=== PATIENT | male | born 1985 | race Hispanic/Latino ===

== ENCOUNTER 2017-06-29 07:23 | Inpatient (IN) | payer MEDICAID, OTHER ==
[2017-06-29 07:40] VITALS: BMI 24.3
[2017-06-29 07:58] LABS: BASO % 0.5 % (0.0-2.0); EOS # 0.1 K/uL (0.0-0.7); EOS % 2.2 % (0.0-4.0); HEMOGLOBIN 16.7 g/dL (12.0-18.0); LYMPH # 1.9 K/uL (1.0-4.3); LYMPH % 35.1 % (20.0-40.0); MEAN CELL VOLUME 91.6 fL (80.0-94.0); MEAN CORPUSCULAR HEMOGLOBIN 32.2 pg (27.0-31.0); MEAN CORPUSCULAR HGB CONC 35.2 g/dL (33.0-37.0); MEAN PLATELET VOLUME 8.5 fL (7.2-11.7); MONO # 0.6 K/uL (0.0-0.8); MONO % 10.5 % (0.0-10.0); NEUT # 2.8 K/uL (1.8-7.0); NEUT % 51.7 % (50.0-75.0); NRBC % 0.1 % (0.0-2.0); RBC 5.19 Mil/uL (4.40-5.90); RED CELL DISTRIBUTION WIDTH 13.7 % (11.5-14.5); WHITE BLOOD COUNT 5.4 K/uL (4.8-10.8)
--- NOTE | 2017-06-29 08:01 | C.PDOC ---
History Of Present Illness 32 y/o male brought to ED by ALS intubated. As per ALS patient was at home vomiting and unresponsive when 911 was called. Empty bottle GHB was found next to the patient. Patient was RSI by paramedics. At arrival patient was unresponsive, unable to obtain history. Time Seen by Provider: 06/29/17 07:43 Chief Complaint (Nursing): Altered Mental Status History Per: EMS History/Exam Limitations: Clinical Condition Onset/Duration Of Symptoms: Hrs Onset Of Symptoms: <3 Hours Current Symptoms Are (Timing): Still Present Usual Baseline: Unknown Exacerbating Factor(s): Other (GHB ) Recent travel outside of the [place]: No Associated Symptoms: Other (Unresponsive ) Past Medical History Reviewed: Historical Data, Nursing Documentation, Vital Signs Vital Signs: Last Vital Signs Temp 97.5 F L 06/30/17 04:00 Pulse 82 06/30/17 06:00 Resp 11 L 06/30/17 06:00 BP 113/76 06/30/17 05:12 Pulse Ox 99 06/30/17 06:00 - Medical History PMH: HIV Surgical History: No Surg Hx Family History: States: No Known Family Hx - Social History Hx Alcohol Use: Yes Hx Substance Use: Yes - Immunization History Hx Tetanus Toxoid Vaccination: No Hx Influenza Vaccination: No Hx Pneumococcal Vaccination: No Review Of Systems Review Of Systems: ROS cannot be obtained secondary to pt's inabilty to answer questions. (Patient unresponsive) Physical Exam - Physical Exam Appears: Well, Non-toxic, No Acute Distress Skin: Diaphoretic Head: Atraumatic, Normacephalic Eye(s): bilateral: Normal Inspection Ear(s): Bilateral: Normal Oral Mucosa: Moist Lips: Other (bilateral nasal trumpets ett 24 at the lip ) Neck: Supple Chest: Symmetrical, No Tenderness Cardiovascular: Rhythm Regular Respiratory: No Rales, No Rhonchi, No Wheezing, Other (bilateral breath sounds with ventilation) Gastrointestinal/Abdominal: Soft, No Tenderness Neurological/Psych: Oriented x3, Normal Speech, Normal Cognition, Other (no focal deficits ) ED Course And Treatment - Laboratory Results Result Diagrams: 06/29/17 07:48 06/29/17 07:48 O2 Sat by Pulse Oximetry: 100 (RA) Pulse Ox Interpretation: Normal - Other Rad CXR - frontal view X-Ray: Viewed By Me, Read By Radiologist Interpretation: Chest x-ray single frontal view. History: Overdose. Comparison : 06/29/2017. Findings: Endotracheal tube extending into the mid thoracic trachea. Mild venous congestion. Right hilar prominence. Mild patchy increased markings at the left lung base. Impression: Endotracheal tube extending into the mid thoracic trachea. Mild venous congestion. Right hilar prominence. Mild patchy increased markings at the left lung base. CXR X-Ray: Viewed By Me, Read By Radiologist Interpretation: Chest x-ray single frontal view. History: NGT placement. Comparison: 06/29/2017. Findings: NG tube extending into the stomach. Other lines and tubes in stable position. Mild venous congestion. Patchy left basilar airspace opacity with small left pleural effusion. Right hilar prominence. Tortuous aorta. Heart size within normal limits. Degenerative changes in the spine. Impression: NG tube extending into the stomach. Other lines and tubes in stable position. Mild venous congestion. Patchy left basilar airspace opacity with small left pleural effusion. Right hilar prominence. Tortuous aorta. - CT Scan/US CT Head Other Rad Studies (CT/US): Read By Radiologist, Radiology Report Reviewed CT/US Interpretation: PROCEDURE: CT HEAD WITH CONTRAST. HISTORY: altered mental status - s/p overdose. COMPARISON: None available. TECHNIQUE: Axial computed tomography images were obtained through the head/brain with intravenous contrast. Radiation dose: Total exam DLP = 996 mGy-cm. This CT exam was performed using one or more of the following dose reduction techniques : Automated exposure control, adjustment of the mA and/or kV according to patient size, and/or use of iterative reconstruction technique. FINDINGS: HEMORRHAGE: No intracranial hemorrhage. BRAIN: No mass, mass effect or edema. No abnormal intracranial enhancement. No atrophy or chronic microvascular ischemic changes. VENTRICLES: Unremarkable. No hydrocephalus. CALVARIUM: Unremarkable. PARANASAL SINUSES: Mucosal thickening and opacification of the left maxillary sinus as well as the ethmoid air cells. MASTOID AIR CELLS: Unremarkable as visualized. No mastoid effusion. OTHER FINDINGS: None. IMPRESSION: No acute intracranial abnormality. Sinus mucosal disease. If symptoms persist, correlation with MRI would be helpful for further evaluation if clinically indicated. Progress Note: Spoke to the fishing vessel deckhand, Jannet Soriano, and the hospitalist, James Marcano While the patient was being transported for CT scan, he extubated himself and NG tube was pulled. Patient is groggy in ER but maintaining airway and saturation. ICU and hospitalist aware. Critical Care Time - Critical Care Note Total Time (in mins): 60 Documented critical care: time excludes all time spent performing seperately billable procedures. Medical Decision Making Medical Decision Making: Ordered BBK, BG, EKG, blood work, CXR, CT head, and urinalysis. Patient on Ventilator. EKG Results: -Sinus bradycardia at 48bmp -QT at 500ms Disposition - Disposition Disposition: HOSPITALIZED Disposition Time: 08:15 Condition: GOOD - Clinical Impression Clinical Impression: Drug overdose, Respiratory failure - Scribe Statement The provider has reviewed the documentation as recorded by the Scribgregg Carrion All medical record entries made by the Vibhaibgregg were at my direction and personally dictated by me. I have reviewed the chart and agree that the record accurately reflects my personal performance of the history, physical exam, medical decision making, and the department course for this patient. I have also personally directed, reviewed, and agree with the discharge instructions and disposition.
[2017-06-29 08:14] LABS: ABG ALLEN TEST POS; ARTERIAL BLOOD GAS HCO3 20.9 mmol/L (21-28); ARTERIAL BLOOD GAS O2 SAT 99.7 % (95-98); ARTERIAL BLOOD GAS PCO2 51 mm/Hg (35-45); ARTERIAL BLOOD GAS PH 7.25 (7.35-7.45); ARTERIAL BLOOD GAS PO2 151 mm/Hg (80-100)
[2017-06-29 08:17] LABS: INR 1.1; PROTHROMBIN TIME 12.4 SECONDS (9.7-12.2)
[2017-06-29 08:20] LABS: ACETAMINOPHEN < 10.0 ug/mL (10.0-30.0); SALICYLATE < 1.0 mg/dL 1
[2017-06-29 08:22] LABS: ALB/GLOB RATIO 1.2 (1.0-2.1); ALBUMIN 4.6 g/dL (3.5-5.0); CALCIUM 9.2 mg/dl (8.6-10.4); GFR AFRICAN-AMERICAN > 60; GFR NON-AFRICAN AMERICAN > 60
[2017-06-29 08:23] LABS: ALT/SGPT 20 U/L (21-72); AST/SGOT 39 U/L (17-59); BLOOD UREA NITROGEN 14 mg/dL (9-20); MAGNESIUM 2.2 mg/dL (1.6-2.3)
--- NOTE | 2017-06-29 08:23 | RAD ---
Chest x-ray single frontal view History: Overdose. Comparison: 06/29/2017 Findings: Endotracheal tube extending into the mid thoracic trachea. Mild venous congestion. Right hilar prominence. Mild patchy increased markings at the left lung base. Impression: Endotracheal tube extending into the mid thoracic trachea. Mild venous congestion. Right hilar prominence. Mild patchy increased markings at the left lung base.
[2017-06-29 08:51] LABS: URINE BACTERIA RARE (<OCC); URINE BILIRUBIN NEGATIVE (NEGATIVE); URINE BLOOD 1+ (NEGATIVE); URINE CLARITY Hazy (Clear); URINE COLOR Yellow (YELLOW); URINE GLUCOSE (UA) NORMAL (Normal); URINE HYALINE CAST 0-2 /lpf (0-2); URINE LEUKOCYTE ESTERASE NEG Leu/uL (Negative); URINE NITRATE NEGATIVE (NEGATIVE); URINE PROTEIN 1+ mg/dL (NEGATIVE)
[2017-06-29] MEDS ORDERED: Midazolam 2 MG/2 ML VIAL ONE (08:54)
[2017-06-29 09:08] LABS: BARBITURATES, UR NEGATIVE (NEGATIVE); OPIATES, UR NEGATIVE (NEGATIVE); PHENCYCLIDINE, UR NEGATIVE (NEGATIVE)
[2017-06-29 09:12] LABS: BENZODIAZEPINES, UR POSITIVE (NEGATIVE)
--- NOTE | 2017-06-29 09:38 | RAD ---
Chest x-ray single frontal view History: NGT placement. Comparison: 06/29/2017 Findings: NG tube extending into the stomach. Other lines and tubes in stable position. Mild venous congestion. Patchy left basilar airspace opacity with small left pleural effusion. Right hilar prominence. Tortuous aorta. Heart size within normal limits. Degenerative changes in the spine. Impression: NG tube extending into the stomach. Other lines and tubes in stable position. Mild venous congestion. Patchy left basilar airspace opacity with small left pleural effusion. Right hilar prominence. Tortuous aorta.
--- NOTE | 2017-06-29 10:19 | CT ---
PROCEDURE: CT HEAD WITH CONTRAST HISTORY: altered mental status - s/p overdose COMPARISON: None available. TECHNIQUE: Axial computed tomography images were obtained through the head/brain with intravenous contrast. Radiation dose: Total exam DLP = 996 mGy-cm. This CT exam was performed using one or more of the following dose reduction techniques: Automated exposure control, adjustment of the mA and/or kV according to patient size, and/or use of iterative reconstruction technique. FINDINGS: HEMORRHAGE: No intracranial hemorrhage. BRAIN: No mass, mass effect or edema. No abnormal intracranial enhancement. No atrophy or chronic microvascular ischemic changes. VENTRICLES: Unremarkable. No hydrocephalus. CALVARIUM: Unremarkable. PARANASAL SINUSES: Mucosal thickening and opacification of the left maxillary sinus as well as the ethmoid air cells. MASTOID AIR CELLS: Unremarkable as visualized. No mastoid effusion. OTHER FINDINGS: None. IMPRESSION: No acute intracranial abnormality. Sinus mucosal disease. If symptoms persist, correlation with MRI would be helpful for further evaluation if clinically indicated.
--- NOTE | 2017-06-29 11:05 | CP.PCM.HP ---
<Pancho Golden - Last Filed: 06/29/17 12:46> History of Present Illness - History of Present Illness History of Present Illness: PGY1 H+P for Dr. Boo Marcano Patient is a 32 year old male with a past medical history of HIV+, methamphetamine abuse and alcohol abuse. The history was obtained from the patient's , Emanuel, due to the patient's current mental status. The patient's reports that him and the patient had gotten into an argument last night. At approximately 5:30am this morning, the patient entered the 's room (currently sleeping in separate rooms. going through a divorce.) attempting to talk to the patient. The told him to go back to sleep. The states a short period of time passed, approximately 15-30 minutes, when he started hearing calls for help coming from the other room. When he walked into the he found the patient laying on the floor with an empty bottle next to him. He states that he smelled the bottle and that it was "definitely GHB". He states that he stayed with the patient. He then noticed that the patient began to appear different, "he appeared to be struggling to breathe." The then called 911. The patient then began vomiting. The vomit was described as yellowish bile. No blood seen. Patient was intubated in the field by EMS. Patient's reports that he has a prescription for Klonopin and that he may have taken that as well. Patient self extubated while in the emergency room. PMH: HIV+, methamphetamine abuse and alcohol abuse PSH: none Family: none Social: never smoker, alcohol abuse (drinks unknown amount daily), hx of polysubstance abuse (GHB, benzo and methamphetamine) Allergies: NKDA Meds: Stribold and Klonopin Patient sees a Dr. Rob in [facility] in [place] for his HIV. According to the , he follows up regularly every three month and is compliant with his mediation. Present on Admission - Present on Admission Any Indicators Present on Admission: No Review of Systems - Review of Systems Systems not reviewed;Unavailable: Altered Mental Status, Intoxicated Past Patient History - Past Social History Smoking Status: Unknown If Ever Smoked - HEMATOLOGICAL/ONCOLOGICAL Hx Human Immunodeficiency Virus (HIV): Yes - GASTROINTESTINAL Hx Constipation: Yes - PSYCHIATRIC Hx Substance Use: Yes - SURGICAL HISTORY Hx Surgeries: No - ANESTHESIA Hx Anesthesia: No Meds Allergies/Adverse Reactions: Allergies Allergy/AdvReac Type Severity Reaction Status Date / Time No Known Allergies Allergy Verified 06/29/17 07:37 Physical Exam - Constitutional Appears: No Acute Distress - Head Exam Head Exam: ATRAUMATIC, NORMOCEPHALIC - Eye Exam Eye Exam: Nystagmus (horizontal) Pupil Exam: NORMAL ACCOMODATION, PERRL - ENT Exam ENT Exam: Mucous Membranes Moist Additional comments: dried blood/vomit in nose. no tongue biting. - Respiratory Exam Respiratory Exam: Clear to Auscultation Bilateral, NORMAL BREATHING PATTERN. absent: Accessory Muscle Use, Rales, Rhonchi, Wheezes, Respiratory Distress - Cardiovascular Exam Cardiovascular Exam: REGULAR RHYTHM, +S1, +S2 - GI/Abdominal Exam GI & Abdominal Exam: Normal Bowel Sounds, Soft. absent: Firm, Guarding, Rigid, Tenderness - Extremities Exam Extremities exam: Positive for: normal inspection, pedal pulses present. Negative for: calf tenderness, pedal edema - Neurological Exam Neurological exam: Altered - Expanded Neurological Exam Expanded Coma Scale Eye Opening: To Pain Coma Scale Motor Response: OBEYS COMMANDS Coma Scale Verbal: None Coma Scale Total: 9 - Skin Skin Exam: Dry Additional comments: cold. bear hugger in place. dried blood and vomit on patient gown. Results - Vital Signs Recent Vital Signs: Last Vital Signs Temp 94.4 F L 06/29/17 07:31 Pulse 55 L 06/29/17 07:31 Resp 16 06/29/17 07:31 BP 155/104 H 06/29/17 07:31 Pulse Ox 100 06/29/17 10:24 - Labs Result Diagrams: 06/29/17 07:48 06/29/17 07:48 Labs: Laboratory Results - last 24 hr 06/29/17 06/29/17 06/29/17 07:34 07:48 07:48 WBC 5.4 RBC 5.19 Hgb 16.7 Hct 47.5 MCV 91.6 MCH 32.2 H MCHC 35.2 RDW 13.7 Plt Count 173 MPV 8.5 Neut % (Auto) 51.7 Lymph % (Auto) 35.1 Gaines % (Auto) 10.5 H Eos % (Auto) 2.2 Baso % (Auto) 0.5 Neut # (Auto) 2.8 Lymph # (Auto) 1.9 Gaines # (Auto) 0.6 Eos # (Auto) 0.1 Baso # (Auto) 0.0 PT INR APTT Puncture Site pCO2 pO2 HCO3 ABG pH ABG Total CO2 ABG O2 Saturation ABG Base Excess Peterson Test ABG Potassium A-a O2 Difference Respiratory Index Glucose Lactate Vent Mode Mechanical Rate FiO2 Tidal Volume PEEP Sodium 141 Potassium 5.5 H Chloride 107 Carbon Dioxide 21 L Anion Gap 18 BUN 14 Creatinine 1.1 Est GFR ( Amer) > 60 Est GFR (Non-Af Amer) > 60 POC Glucose (mg/dL) 113 H Random Glucose 122 H Calcium 9.2 Phosphorus 5.1 H Magnesium 2.2 Total Bilirubin 1.3 AST 39 ALT 20 L Alkaline Phosphatase 56 Total Protein 8.4 H Albumin 4.6 Globulin 3.9 Albumin/Globulin Ratio 1.2 Arterial Blood Potassium Urine Color Urine Clarity Urine pH Ur Specific [place] Urine Protein Urine Glucose (UA) Urine Ketones Urine Blood Urine Nitrate Urine Bilirubin Urine Urobilinogen Ur Leukocyte Esterase Urine WBC (Auto) Urine RBC (Auto) Urine Bacteria Hyaline Casts Salicylates Urine Opiates Screen Urine Methadone Screen Acetaminophen Ur Barbiturates Screen Ur Phencyclidine Scrn Ur Amphetamines Screen U Benzodiazepines Scrn U Oth Cocaine Metabols U Cannabinoids Screen Alcohol, Quantitative < 10 Blood Type Blood Type Confirm Antibody Screen 06/29/17 06/29/17 06/29/17 07:48 07:48 07:52 WBC RBC Hgb Hct MCV MCH MCHC RDW Plt Count MPV Neut % (Auto) Lymph % (Auto) Gaines % (Auto) Eos % (Auto) Baso % (Auto) Neut # (Auto) Lymph # (Auto) Gaines # (Auto) Eos # (Auto) Baso # (Auto) PT 12.4 H INR 1.1 APTT 28 Puncture Site pCO2 pO2 HCO3 ABG pH ABG Total CO2 ABG O2 Saturation ABG Base Excess Peterson Test ABG Potassium A-a O2 Difference Respiratory Index Glucose Lactate Vent Mode Mechanical Rate FiO2 Tidal Volume PEEP Sodium Potassium Chloride Carbon Dioxide Anion Gap BUN Creatinine Est GFR ( Amer) Est GFR (Non-Af Amer) POC Glucose (mg/dL) Random Glucose Calcium Phosphorus Magnesium Total Bilirubin AST ALT Alkaline Phosphatase Total Protein Albumin Globulin Albumin/Globulin Ratio Arterial Blood Potassium Urine Color Urine Clarity Urine pH Ur Specific [place] Urine Protein Urine Glucose (UA) Urine Ketones Urine Blood Urine Nitrate Urine Bilirubin Urine Urobilinogen Ur Leukocyte Esterase Urine WBC (Auto) Urine RBC (Auto) Urine Bacteria Hyaline Casts Salicylates < 1.0 Urine Opiates Screen Urine Methadone Screen Acetaminophen < 10.0 L Ur Barbiturates Screen Ur Phencyclidine Scrn Ur Amphetamines Screen U Benzodiazepines Scrn U Oth Cocaine Metabols U Cannabinoids Screen Alcohol, Quantitative Blood Type A POSITIVE Blood Type Confirm A POSITIVE Antibody Screen Negative 06/29/17 06/29/17 06/29/17 08:09 08:42 08:42 WBC RBC Hgb Hct MCV MCH MCHC RDW Plt Count MPV Neut % (Auto) Lymph % (Auto) Gaines % (Auto) Eos % (Auto) Baso % (Auto) Neut # (Auto) Lymph # (Auto) Gaines # (Auto) Eos # (Auto) Baso # (Auto) PT INR APTT Puncture Site Rba pCO2 51 H pO2 151 H HCO3 20.9 L ABG pH 7.25 L ABG Total CO2 24.0 ABG O2 Saturation 99.7 H ABG Base Excess -5.2 L Peterson Test Pos ABG Potassium 3.9 A-a O2 Difference 213.0 Respiratory Index 1.4 Glucose 117 H Lactate 0.6 L Vent Mode Prvc Mechanical Rate 12 FiO2 60.0 Tidal Volume 50 PEEP 3 Sodium 142.0 Potassium Chloride 110.0 H Carbon Dioxide Anion Gap BUN Creatinine Est GFR ( Amer) Est GFR (Non-Af Amer) POC Glucose (mg/dL) Random Glucose Calcium Phosphorus Magnesium Total Bilirubin AST ALT Alkaline Phosphatase Total Protein Albumin Globulin Albumin/Globulin Ratio Arterial Blood Potassium 3.9 Urine Color Yellow Urine Clarity Hazy Urine pH 5.0 Ur Specific [place] 1.026 Urine Protein 1+ H Urine Glucose (UA) Normal Urine Ketones 2+ H Urine Blood 1+ H Urine Nitrate Negative Urine Bilirubin Negative Urine Urobilinogen 2.0 Ur Leukocyte Esterase Neg Urine WBC (Auto) 3 Urine RBC (Auto) 8 H Urine Bacteria Rare Hyaline Casts 0-2 Salicylates Urine Opiates Screen Negative Urine Methadone Screen Negative Acetaminophen Ur Barbiturates Screen Negative Ur Phencyclidine Scrn Negative Ur Amphetamines Screen Positive H U Benzodiazepines Scrn Positive U Oth Cocaine Metabols Negative U Cannabinoids Screen Negative Alcohol, Quantitative Blood Type Blood Type Confirm Antibody Screen Assessment & Plan - Assessment and Plan (Free Text) Plan: Altered Mental Status - suspected GHB Intoxication/Overdose ICU consulted, patient admitted directly to ICU for continued monitoring Psychiatry consulted, Dr. Kathleen, r/o suicide Intubated in the field * Given Versed 10, Succ 200, Ketamine 100 and Narcan 2 in field * Self extubated while in emergency room. Head CT - No acute intracranial abnormality. Sinus mucosal disease. CXR - normal. No acute findings. EKG - sinus ursula @48, QT 500ms - no ST elevations ABG (while intubated) - pCO2 51, pO2 151, HCO3 20.9, pH 7.25 - vent settings FiO2 60/ Tidal Vol. 500 / RR 12 / PEEP 3 * f/u repeat ABG UDS - positive for amphetamines only. Alcohol (<10) f/u Creatine Phosphokinase NS @ 100mL/hr 1:1 obs for suicide prevention HIV + Patient is to continue taking his home medication, Stribold Case discussed with Dr. Boo Golden PGY1 <Carlos Marcano - Last Filed: 06/29/17 15:58> Results - Vital Signs Recent Vital Signs: Last Vital Signs Temp 97.3 F L 06/29/17 12:00 Pulse 106 H 06/29/17 14:30 Resp 19 06/29/17 14:30 BP 135/88 06/29/17 14:12 Pulse Ox 100 06/29/17 14:30 - Labs Result Diagrams: 06/29/17 07:48 06/29/17 07:48 Labs: Laboratory Results - last 24 hr 06/29/17 06/29/17 06/29/17 07:34 07:48 07:48 WBC 5.4 RBC 5.19 Hgb 16.7 Hct 47.5 MCV 91.6 MCH 32.2 H MCHC 35.2 RDW 13.7 Plt Count 173 MPV 8.5 Neut % (Auto) 51.7 Lymph % (Auto) 35.1 Gaines % (Auto) 10.5 H Eos % (Auto) 2.2 Baso % (Auto) 0.5 Neut # (Auto) 2.8 Lymph # (Auto) 1.9 Gaines # (Auto) 0.6 Eos # (Auto) 0.1 Baso # (Auto) 0.0 PT INR APTT Puncture Site pCO2 pO2 HCO3 ABG pH ABG Total CO2 ABG O2 Saturation ABG Base Excess Peterson Test ABG Potassium A-a O2 Difference Respiratory Index Glucose Lactate Vent Mode Mechanical Rate FiO2 Tidal Volume PEEP Sodium 141 Potassium 5.5 H Chloride 107 Carbon Dioxide 21 L Anion Gap 18 BUN 14 Creatinine 1.1 Est GFR ( Amer) > 60 Est GFR (Non-Af Amer) > 60 POC Glucose (mg/dL) 113 H Random Glucose 122 H Calcium 9.2 Phosphorus 5.1 H Magnesium 2.2 Total Bilirubin 1.3 AST 39 ALT 20 L Alkaline Phosphatase 56 Total Creatine Kinase Total Protein 8.4 H Albumin 4.6 Globulin 3.9 Albumin/Globulin Ratio 1.2 Arterial Blood Potassium Urine Color Urine Clarity Urine pH Ur Specific [place] Urine Protein Urine Glucose (UA) Urine Ketones Urine Blood Urine Nitrate Urine Bilirubin Urine Urobilinogen Ur Leukocyte Esterase Urine WBC (Auto) Urine RBC (Auto) Urine Bacteria Hyaline Casts Salicylates Urine Opiates Screen Urine Methadone Screen Acetaminophen Ur Barbiturates Screen Ur Phencyclidine Scrn Ur Amphetamines Screen U Benzodiazepines Scrn U Oth Cocaine Metabols U Cannabinoids Screen Alcohol, Quantitative < 10 Blood Type Blood Type Confirm Antibody Screen 06/29/17 06/29/17 06/29/17 07:48 07:48 07:52 WBC RBC Hgb Hct MCV MCH MCHC RDW Plt Count MPV Neut % (Auto) Lymph % (Auto) Gaines % (Auto) Eos % (Auto) Baso % (Auto) Neut # (Auto) Lymph # (Auto) Gaines # (Auto) Eos # (Auto) Baso # (Auto) PT 12.4 H INR 1.1 APTT 28 Puncture Site pCO2 pO2 HCO3 ABG pH ABG Total CO2 ABG O2 Saturation ABG Base Excess Peterson Test ABG Potassium A-a O2 Difference Respiratory Index Glucose Lactate Vent Mode Mechanical Rate FiO2 Tidal Volume PEEP Sodium Potassium Chloride Carbon Dioxide Anion Gap BUN Creatinine Est GFR ( Amer) Est GFR (Non-Af Amer) POC Glucose (mg/dL) Random Glucose Calcium Phosphorus Magnesium Total Bilirubin AST ALT Alkaline Phosphatase Total Creatine Kinase Total Protein Albumin Globulin Albumin/Globulin Ratio Arterial Blood Potassium Urine Color Urine Clarity Urine pH Ur Specific [place] Urine Protein Urine Glucose (UA) Urine Ketones Urine Blood Urine Nitrate Urine Bilirubin Urine Urobilinogen Ur Leukocyte Esterase Urine WBC (Auto) Urine RBC (Auto) Urine Bacteria Hyaline Casts Salicylates < 1.0 Urine Opiates Screen Urine Methadone Screen Acetaminophen < 10.0 L Ur Barbiturates Screen Ur Phencyclidine Scrn Ur Amphetamines Screen U Benzodiazepines Scrn U Oth Cocaine Metabols U Cannabinoids Screen Alcohol, Quantitative Blood Type A POSITIVE Blood Type Confirm A POSITIVE Antibody Screen Negative 06/29/17 06/29/17 06/29/17 08:09 08:42 08:42 WBC RBC Hgb Hct MCV MCH MCHC RDW Plt Count MPV Neut % (Auto) Lymph % (Auto) Gaines % (Auto) Eos % (Auto) Baso % (Auto) Neut # (Auto) Lymph # (Auto) Gaines # (Auto) Eos # (Auto) Baso # (Auto) PT INR APTT Puncture Site Rba pCO2 51 H pO2 151 H HCO3 20.9 L ABG pH 7.25 L ABG Total CO2 24.0 ABG O2 Saturation 99.7 H ABG Base Excess -5.2 L Peterson Test Pos ABG Potassium 3.9 A-a O2 Difference 213.0 Respiratory Index 1.4 Glucose 117 H Lactate 0.6 L Vent Mode Prvc Mechanical Rate 12 FiO2 60.0 Tidal Volume 50 PEEP 3 Sodium 142.0 Potassium Chloride 110.0 H Carbon Dioxide Anion Gap BUN Creatinine Est GFR ( Amer) Est GFR (Non-Af Amer) POC Glucose (mg/dL) Random Glucose Calcium Phosphorus Magnesium Total Bilirubin AST ALT Alkaline Phosphatase Total Creatine Kinase Total Protein Albumin Globulin Albumin/Globulin Ratio Arterial Blood Potassium 3.9 Urine Color Yellow Urine Clarity Hazy Urine pH 5.0 Ur Specific [place] 1.026 Urine Protein 1+ H Urine Glucose (UA) Normal Urine Ketones 2+ H Urine Blood 1+ H Urine Nitrate Negative Urine Bilirubin Negative Urine Urobilinogen 2.0 Ur Leukocyte Esterase Neg Urine WBC (Auto) 3 Urine RBC (Auto) 8 H Urine Bacteria Rare Hyaline Casts 0-2 Salicylates Urine Opiates Screen Negative Urine Methadone Screen Negative Acetaminophen Ur Barbiturates Screen Negative Ur Phencyclidine Scrn Negative Ur Amphetamines Screen Positive H U Benzodiazepines Scrn Positive U Oth Cocaine Metabols Negative U Cannabinoids Screen Negative Alcohol, Quantitative Blood Type Blood Type Confirm Antibody Screen 06/29/17 14:15 WBC RBC Hgb Hct MCV MCH MCHC RDW Plt Count MPV Neut % (Auto) Lymph % (Auto) Gaines % (Auto) Eos % (Auto) Baso % (Auto) Neut # (Auto) Lymph # (Auto) Gaines # (Auto) Eos # (Auto) Baso # (Auto) PT INR APTT Puncture Site pCO2 pO2 HCO3 ABG pH ABG Total CO2 ABG O2 Saturation ABG Base Excess Peterson Test ABG Potassium A-a O2 Difference Respiratory Index Glucose Lactate Vent Mode Mechanical Rate FiO2 Tidal Volume PEEP Sodium Potassium Chloride Carbon Dioxide Anion Gap BUN Creatinine Est GFR ( Amer) Est GFR (Non-Af Amer) POC Glucose (mg/dL) Random Glucose Calcium Phosphorus Magnesium Total Bilirubin AST ALT Alkaline Phosphatase Total Creatine Kinase 92 Total Protein Albumin Globulin Albumin/Globulin Ratio Arterial Blood Potassium Urine Color Urine Clarity Urine pH Ur Specific [place] Urine Protein Urine Glucose (UA) Urine Ketones Urine Blood Urine Nitrate Urine Bilirubin Urine Urobilinogen Ur Leukocyte Esterase Urine WBC (Auto) Urine RBC (Auto) Urine Bacteria Hyaline Casts Salicylates Urine Opiates Screen Urine Methadone Screen Acetaminophen Ur Barbiturates Screen Ur Phencyclidine Scrn Ur Amphetamines Screen U Benzodiazepines Scrn U Oth Cocaine Metabols U Cannabinoids Screen Alcohol, Quantitative Blood Type Blood Type Confirm Antibody Screen Attending/Attestation - Attestation I have personally seen and examined this patient.: Yes I have fully participated in the care of the patient.: Yes I have reviewed all pertinent clinical information: Yes Notes (Text): 06/29/17 15:58 Patient was seen and examined with the resident in the ER Bed #12. Assessment and Plan were gone over with the resident. Carlos Marcano D.O.
[2017-06-29] MEDS ORDERED: Sodium Chloride 0.9% 1,000 ML IV SCH (11:15)
[2017-06-29] MEDS: Sodium Chloride 0.9% 1,000 ML IV SCH ×3 (11:30→23:35)
--- NOTE | 2017-06-29 12:19 | CP.PCM.CON ---
History of Present Illness - History of Present Illness History of Present Illness: 32 year old male with a past medical history of HIV+, methamphetamine abuse and alcohol abuse. p/w overdose of gamma-Hydroxybutyric acid. patient was intubated by EMS. brought to ED and as patient was being transported to ICU he self-extubated. Patient is alert and following commands now. Review of Systems - Review of Systems All systems: reviewed and no additional remarkable complaints except - Neurological Neurological: Headaches Past Patient History - Past Social History Smoking Status: Unknown If Ever Smoked - HEMATOLOGICAL/ONCOLOGICAL Hx Human Immunodeficiency Virus (HIV): Yes - MUSCULOSKELETAL/RHEUMATOLOGICAL Hx Falls: No - GASTROINTESTINAL Hx Constipation: Yes - PSYCHIATRIC Hx Substance Use: Yes - SURGICAL HISTORY Hx Surgeries: No - ANESTHESIA Hx Anesthesia: No Meds Allergies/Adverse Reactions: Allergies Allergy/AdvReac Type Severity Reaction Status Date / Time No Known Allergies Allergy Verified 06/29/17 07:37 - Medications Medications: Current Medications Sodium Chloride (Sodium Chloride 0.9%) 1,000 mls @ 100 mls/hr IV .Q10H BERTHA Physical Exam - Head Exam Head Exam: ATRAUMATIC, NORMAL INSPECTION, NORMOCEPHALIC - Eye Exam Eye Exam: EOMI, Normal appearance, PERRL - ENT Exam ENT Exam: Mucous Membranes Moist, Normal Exam - Respiratory Exam Respiratory Exam: Clear to Auscultation Bilateral, NORMAL BREATHING PATTERN - Cardiovascular Exam Cardiovascular Exam: REGULAR RHYTHM - GI/Abdominal Exam GI & Abdominal Exam: Normal Bowel Sounds, Soft. absent: Tenderness - Neurological Exam Neurological exam: Alert, CN II-XII Intact, Oriented x3 Results - Vital Signs Recent Vital Signs: Last Vital Signs Temp 95 F L 06/29/17 08:25 Pulse 90 06/29/17 09:42 Resp 14 06/29/17 09:42 BP 133/86 06/29/17 09:25 Pulse Ox 100 06/29/17 10:24 - Labs Result Diagrams: 06/29/17 07:48 06/29/17 07:48 Labs: Laboratory Results - last 24 hr 06/29/17 06/29/17 06/29/17 07:34 07:48 07:48 WBC 5.4 RBC 5.19 Hgb 16.7 Hct 47.5 MCV 91.6 MCH 32.2 H MCHC 35.2 RDW 13.7 Plt Count 173 MPV 8.5 Neut % (Auto) 51.7 Lymph % (Auto) 35.1 [place] % (Auto) 10.5 H Eos % (Auto) 2.2 Baso % (Auto) 0.5 Neut # (Auto) 2.8 Lymph # (Auto) 1.9 [place] # (Auto) 0.6 Eos # (Auto) 0.1 Baso # (Auto) 0.0 PT INR APTT Puncture Site pCO2 pO2 HCO3 ABG pH ABG Total CO2 ABG O2 Saturation ABG Base Excess Peterson Test ABG Potassium A-a O2 Difference Respiratory Index Glucose Lactate Vent Mode Mechanical Rate FiO2 Tidal Volume PEEP Sodium 141 Potassium 5.5 H Chloride 107 Carbon Dioxide 21 L Anion Gap 18 BUN 14 Creatinine 1.1 Est GFR ( Amer) > 60 Est GFR (Non-Af Amer) > 60 POC Glucose (mg/dL) 113 H Random Glucose 122 H Calcium 9.2 Phosphorus 5.1 H Magnesium 2.2 Total Bilirubin 1.3 AST 39 ALT 20 L Alkaline Phosphatase 56 Total Protein 8.4 H Albumin 4.6 Globulin 3.9 Albumin/Globulin Ratio 1.2 Arterial Blood Potassium Urine Color Urine Clarity Urine pH Ur Specific [place] Urine Protein Urine Glucose (UA) Urine Ketones Urine Blood Urine Nitrate Urine Bilirubin Urine Urobilinogen Ur Leukocyte Esterase Urine WBC (Auto) Urine RBC (Auto) Urine Bacteria Hyaline Casts Salicylates Urine Opiates Screen Urine Methadone Screen Acetaminophen Ur Barbiturates Screen Ur Phencyclidine Scrn Ur Amphetamines Screen U Benzodiazepines Scrn U Oth Cocaine Metabols U Cannabinoids Screen Alcohol, Quantitative < 10 Blood Type Blood Type Confirm Antibody Screen 06/29/17 06/29/17 06/29/17 07:48 07:48 07:52 WBC RBC Hgb Hct MCV MCH MCHC RDW Plt Count MPV Neut % (Auto) Lymph % (Auto) [place] % (Auto) Eos % (Auto) Baso % (Auto) Neut # (Auto) Lymph # (Auto) [place] # (Auto) Eos # (Auto) Baso # (Auto) PT 12.4 H INR 1.1 APTT 28 Puncture Site pCO2 pO2 HCO3 ABG pH ABG Total CO2 ABG O2 Saturation ABG Base Excess Peterson Test ABG Potassium A-a O2 Difference Respiratory Index Glucose Lactate Vent Mode Mechanical Rate FiO2 Tidal Volume PEEP Sodium Potassium Chloride Carbon Dioxide Anion Gap BUN Creatinine Est GFR ( Amer) Est GFR (Non-Af Amer) POC Glucose (mg/dL) Random Glucose Calcium Phosphorus Magnesium Total Bilirubin AST ALT Alkaline Phosphatase Total Protein Albumin Globulin Albumin/Globulin Ratio Arterial Blood Potassium Urine Color Urine Clarity Urine pH Ur Specific [place] Urine Protein Urine Glucose (UA) Urine Ketones Urine Blood Urine Nitrate Urine Bilirubin Urine Urobilinogen Ur Leukocyte Esterase Urine WBC (Auto) Urine RBC (Auto) Urine Bacteria Hyaline Casts Salicylates < 1.0 Urine Opiates Screen Urine Methadone Screen Acetaminophen < 10.0 L Ur Barbiturates Screen Ur Phencyclidine Scrn Ur Amphetamines Screen U Benzodiazepines Scrn U Oth Cocaine Metabols U Cannabinoids Screen Alcohol, Quantitative Blood Type A POSITIVE Blood Type Confirm A POSITIVE Antibody Screen Negative 06/29/17 06/29/17 06/29/17 08:09 08:42 08:42 WBC RBC Hgb Hct MCV MCH MCHC RDW Plt Count MPV Neut % (Auto) Lymph % (Auto) [place] % (Auto) Eos % (Auto) Baso % (Auto) Neut # (Auto) Lymph # (Auto) [place] # (Auto) Eos # (Auto) Baso # (Auto) PT INR APTT Puncture Site Rba pCO2 51 H pO2 151 H HCO3 20.9 L ABG pH 7.25 L ABG Total CO2 24.0 ABG O2 Saturation 99.7 H ABG Base Excess -5.2 L Peterson Test Pos ABG Potassium 3.9 A-a O2 Difference 213.0 Respiratory Index 1.4 Glucose 117 H Lactate 0.6 L Vent Mode Prvc Mechanical Rate 12 FiO2 60.0 Tidal Volume 50 PEEP 3 Sodium 142.0 Potassium Chloride 110.0 H Carbon Dioxide Anion Gap BUN Creatinine Est GFR ( Amer) Est GFR (Non-Af Amer) POC Glucose (mg/dL) Random Glucose Calcium Phosphorus Magnesium Total Bilirubin AST ALT Alkaline Phosphatase Total Protein Albumin Globulin Albumin/Globulin Ratio Arterial Blood Potassium 3.9 Urine Color Yellow Urine Clarity Hazy Urine pH 5.0 Ur Specific [place] 1.026 Urine Protein 1+ H Urine Glucose (UA) Normal Urine Ketones 2+ H Urine Blood 1+ H Urine Nitrate Negative Urine Bilirubin Negative Urine Urobilinogen 2.0 Ur Leukocyte Esterase Neg Urine WBC (Auto) 3 Urine RBC (Auto) 8 H Urine Bacteria Rare Hyaline Casts 0-2 Salicylates Urine Opiates Screen Negative Urine Methadone Screen Negative Acetaminophen Ur Barbiturates Screen Negative Ur Phencyclidine Scrn Negative Ur Amphetamines Screen Positive H U Benzodiazepines Scrn Positive U Oth Cocaine Metabols Negative U Cannabinoids Screen Negative Alcohol, Quantitative Blood Type Blood Type Confirm Antibody Screen Assessment & Plan (1) Drug overdose Assessment and Plan: 32 year old male with a past medical history of HIV+, methamphetamine abuse and alcohol abuse. p/w overdose of gamma-Hydroxybutyric acid. Neuro: alert and oriented x 3, intentional suicide attempt, psych consult called , 1:1 observation. Pulm: breathing spontaneously on room air CV: monitoring for signs of bradycardia. Hem: no acute issues Renal: urnie output, wnl, will monitor Endo: no acute issues GI: regular diet ID: no acute issues. DVT proph - lovenox GI proph - not currently indicated potter for strict I/O's during acute illness Code status - full code Critical Care Time spent 35 minutes Multi-disciplinary rounds were performed with house staff, nursing, speech therapy, respiratory therapy, pharmacy and nutrition with integrated input from the primary team/attending and other consulting services. The documented time is cumulative and includes review of patient data/exams/labs/chart review and examination of the patient on rounds and throughout the day; time is exclusive of any procedures or teaching time. Status: Acute
[2017-06-29] MEDS: STRIBILD PO SCH (23:10)
[2017-06-30] MEDS: Sodium Chloride 0.9% 1,000 ML IV SCH (09:49)
[2017-06-30] MEDS ORDERED: STRIBILD PO SCH (10:00)
[2017-06-30 10:02] LABS: BASO % 0.6 % (0.0-2.0); EOS # 0.2 K/uL (0.0-0.7); HEMOGLOBIN 14.8 g/dL (12.0-18.0); LYMPH # 1.7 K/uL (1.0-4.3); LYMPH % 25.4 % (20.0-40.0); MEAN CELL VOLUME 89.8 fL (80.0-94.0); MEAN CORPUSCULAR HGB CONC 35.6 g/dL (33.0-37.0); MEAN PLATELET VOLUME 8.4 fL (7.2-11.7); MONO # 0.5 K/uL (0.0-0.8); MONO % 7.1 % (0.0-10.0); NEUT # 4.3 K/uL (1.8-7.0); NEUT % 63.9 % (50.0-75.0); NRBC % 0.1 % (0.0-2.0); RBC 4.62 Mil/uL (4.40-5.90); RED CELL DISTRIBUTION WIDTH 13.6 % (11.5-14.5); WHITE BLOOD COUNT 6.8 K/uL (4.8-10.8)
[2017-06-30] MEDS: STRIBILD PO SCH (10:12)
[2017-06-30 10:22] LABS: ALB/GLOB RATIO 1.2 (1.0-2.1); ALBUMIN 3.8 g/dL (3.5-5.0); ALT/SGPT 21 U/L (21-72); AST/SGOT 18 U/L (17-59); BLOOD UREA NITROGEN 14 mg/dL (9-20); CALCIUM 8.9 mg/dl (8.6-10.4); GFR AFRICAN-AMERICAN > 60; GFR NON-AFRICAN AMERICAN > 60; MAGNESIUM 1.9 mg/dL (1.6-2.3)
--- NOTE | 2017-06-30 10:33 | CP.CCUPN ---
CCU Subjective - Physician Review Events Since Last Encounter (Free Text): 06/30/17 10:32 32-year-old male admitted with a history of HIV positive, methamphetamine abuse and alcohol abuse, and drug abuse. Admitted with a drug overdose, acute respiratory failure intubated. Patient extubated himself last night. This morning he is awake and responding comfortable not in any distress eating well Critical Care Time Spent (in minutes): 45 CCU Objective - Vital Signs / Intake & Output Vital Signs (Last 4 hours): Vital Signs Temp Pulse Resp BP Pulse Ox 06/30/17 10:00 90 28 H 97 06/30/17 09:12 103 H 19 118/81 98 06/30/17 09:00 100 H 24 97 06/30/17 08:12 85 10 L 120/70 97 06/30/17 08:02 100 06/30/17 08:00 98.2 F 92 H 18 97 06/30/17 07:12 87 18 119/77 98 06/30/17 07:00 74 20 98 Intake and Output (Last 8hrs): Intake & Output 06/29/17 06/30/17 06/30/17 22:59 06:59 14:59 Intake Total 800 1760 980 Output Total 615 485 340 Balance 185 1275 640 Weight 177 lb Intake: Intake, IV Amount 800 800 400 Right Hand 800 800 400 Oral 0 960 580 Output: Urine 615 485 340 Urethral (Loza) 615 485 340 Stool 0 0 0 Emesis 0 - Physical Exam Narrative Physical Exam (Free Text): 06/30/17 10:32 Vital signs reviewed No neck vein distention noted Chest good air entry bilaterally, no wheezing or rales noted CVS regular heart sound, no murmur noted Abdomen soft, nontender. Extremities no pedal edema TRAINING OFFICER alert awake oriented -3, no functional neurological deficit - Medications Active Medications: Active Medications Generic Name Dose Route Start Last Admin Trade Name Freq PRN Reason Stop Dose Admin Home Med 1 tab 06/29/17 23:00 06/30/17 10:12 Patient's Own Medication PO 1 tab DAILY BERTHA Administration Sodium Chloride 1,000 mls @ 100 mls/hr 06/29/17 11:30 06/30/17 09:49 Sodium Chloride 0.9% IV 100 mls/hr .Q10H BERTHA Administration - Patient Studies Lab Studies: Lab Studies 06/30/17 06/30/17 06/29/17 Range/Units 09:54 09:54 14:15 WBC 6.8 (4.8-10.8) K/uL RBC 4.62 (4.40-5.90) Mil/uL Hgb 14.8 (12.0-18.0) g/dL Hct 41.5 (35.0-51.0) % MCV 89.8 (80.0-94.0) fL MCH 32.0 H (27.0-31.0) pg MCHC 35.6 (33.0-37.0) g/dL RDW 13.6 (11.5-14.5) % Plt Count 177 (130-400) K/uL MPV 8.4 (7.2-11.7) fL Neut % (Auto) 63.9 (50.0-75.0) % Lymph % (Auto) 25.4 (20.0-40.0) % Phillips % (Auto) 7.1 (0.0-10.0) % Eos % (Auto) 3.0 (0.0-4.0) % Baso % (Auto) 0.6 (0.0-2.0) % Neut # (Auto) 4.3 (1.8-7.0) K/uL Lymph # (Auto) 1.7 (1.0-4.3) K/uL Phillips # (Auto) 0.5 (0.0-0.8) K/uL Eos # (Auto) 0.2 (0.0-0.7) K/uL Baso # (Auto) 0.0 (0.0-0.2) K/uL Sodium 137 (132-148) mmol/L Potassium 3.7 (3.6-5.2) mmol/L Chloride 102 (98-107) mmol/L Carbon Dioxide 25 (22-30) mmol/L Anion Gap 13 (10-20) BUN 14 (9-20) mg/dL Creatinine 0.9 (0.8-1.5) mg/dL Est GFR ( Amer) > 60 Est GFR (Non-Af Amer) > 60 Random Glucose 170 H (75-110) mg/dL Calcium 8.9 (8.6-10.4) mg/dl Magnesium 1.9 (1.6-2.3) mg/dL Total Bilirubin 1.1 (0.2-1.3) mg/dL AST 18 (17-59) U/L ALT 21 (21-72) U/L Alkaline Phosphatase 42 (38-126) U/L Total Creatine Kinase 92 (55-170) U/L Total Protein 6.9 (6.3-8.3) g/dL Albumin 3.8 (3.5-5.0) g/dL Globulin 3.1 (2.2-3.9) gm/dL Albumin/Globulin Ratio 1.2 (1.0-2.1) Laboratory Results - last 24 hr 06/29/17 06/30/17 06/30/17 14:15 09:54 09:54 WBC 6.8 RBC 4.62 Hgb 14.8 Hct 41.5 MCV 89.8 MCH 32.0 H MCHC 35.6 RDW 13.6 Plt Count 177 MPV 8.4 Neut % (Auto) 63.9 Lymph % (Auto) 25.4 Phillips % (Auto) 7.1 Eos % (Auto) 3.0 Baso % (Auto) 0.6 Neut # (Auto) 4.3 Lymph # (Auto) 1.7 Phillips # (Auto) 0.5 Eos # (Auto) 0.2 Baso # (Auto) 0.0 Sodium 137 Potassium 3.7 Chloride 102 Carbon Dioxide 25 Anion Gap 13 BUN 14 Creatinine 0.9 Est GFR ( Amer) > 60 Est GFR (Non-Af Amer) > 60 Random Glucose 170 H Calcium 8.9 Magnesium 1.9 Total Bilirubin 1.1 AST 18 ALT 21 Alkaline Phosphatase 42 Total Creatine Kinase 92 Total Protein 6.9 Albumin 3.8 Globulin 3.1 Albumin/Globulin Ratio 1.2 Review of Systems - Review of Systems All systems: reviewed and no additional remarkable complaints except Critical Care Progress Note - Ventilator Checklist Head of Bed 30 Degrees: Yes Daily Sedation Vacation: Yes Daily Assessment of Readiness to Wean: Yes Daily Spontaneous Breathing Trial: Yes PUD Prophalyxis: Yes DVT Prophylaxis: Yes Oral Care with Chlorhexidine Gluconate {CHG}: Yes - Nutrition Nutrition: Nutrition Category Date Time Status Regular Diet [DIET] Diets 06/29/17 Dinner Active Assessment/Plan (1) Drug overdose Assessment and plan: acute respiratory failure, secondary to drug overdose. Extubated Doing well Delayed transfer the patient to regular medical floor Hospitalist will continue the care Current Visit: Yes Status: Acute (2) Respiratory failure Current Visit: Yes Status: Acute
--- NOTE | 2017-06-30 12:29 | CP.PCM.PN ---
Subjective - Date & Time of Evaluation Date of Evaluation: 06/30/17 Time of Evaluation: 12:15 - Subjective Subjective: Hospitalist Progress Note Patient was seen and examined at 12:15 PM 06/30/17 ICU Bed #12 History of intentional overdose on GHB after argument with . ROS: Headache are earlier but this has resolved. Bilateral chest soreness: received CPR in field NO dysphagia/odynopahgia NO soreness in throat NO cough NO sinus/nasal congestion NO fever/chills NO muscle aches/pains NO joint pain NO chest pain/palpations NO SOB NO abdominal pain NO n/v/d/c NO burning pain with urination NO lightheadedness/dizziness NO paresthesias Exam: General: AAOX3, NAD HEENT: NCA, EOMI, PERRLA, NO cervical/supraclavicular/submandibular lymphadenopathy, NO pharyngeal erythema/exudate, Nasal Turbinates are nonerythematous/nonedematous, Oral Mucosa is moist Cardio: NS1 and NS2, NO M/R/G Resp: CTA B/L, NO R/R/W GI: BSx4, Soft, NT, NO HSM, NO guarding/rebound tenderness Ext: Pulses are strong and equal, Capillary Refill is 2 seconds, NO edema Neuro: CN II through XII are grossly intact Assessments: 1). Drug (GHB) Overdose Patient stated that this was intentional as he was upset after argument with Emanuel Moon 1:1 observation. F/U with Psychiatry to make sure patient is cleared for discharge vs. in- patient psychiatry if patient decides to do to in-patient psychiatry Patient is medically stable. 2). Hx HIV Stribold which was brought from home Carlos Marcano D.O. Objective - Vital Signs/Intake and Output Vital Signs (last 24 hours): Temp Pulse Resp BP Pulse Ox 98.2 F 90 28 H 118/81 97 06/30/17 08:00 06/30/17 10:00 06/30/17 10:00 06/30/17 09:12 06/30/17 10:00 Intake and Output: 06/30/17 06/30/17 06:59 18:59 Intake Total 2060 980 Output Total 825 340 Balance 1235 640 - Medications Medications: Current Medications Home Med (Patient's Own Medication) 1 tab PO DAILY BERTHA Last Admin: 06/30/17 10:12 Dose: 1 tab - Labs Labs: 06/30/17 09:54 06/30/17 09:54 PT 12.4 SECONDS (9.7-12.2) H 06/29/17 07:52 INR 1.1 06/29/17 07:52 APTT 28 SECONDS (21-34) 06/29/17 07:52
[2017-06-30 19:30] VITALS: RESP 20
[2017-06-30 23:32] VITALS: TEMP 97.6
[2017-07-01 06:45] LABS: BASO # 0.1 K/uL (0.0-0.2); BASO % 0.7 % (0.0-2.0); EOS # 0.4 K/uL (0.0-0.7); EOS % 5.2 % (0.0-4.0); HEMOGLOBIN 15.7 g/dL (12.0-18.0); LYMPH # 3.2 K/uL (1.0-4.3); LYMPH % 42.6 % (20.0-40.0); MEAN CELL VOLUME 89.3 fL (80.0-94.0); MEAN CORPUSCULAR HEMOGLOBIN 31.6 pg (27.0-31.0); MEAN CORPUSCULAR HGB CONC 35.4 g/dL (33.0-37.0); MEAN PLATELET VOLUME 8.3 fL (7.2-11.7); MONO # 0.8 K/uL (0.0-0.8); MONO % 10.7 % (0.0-10.0); NEUT % 40.8 % (50.0-75.0); NRBC % 0.2 % (0.0-2.0); RBC 4.96 Mil/uL (4.40-5.90); RED CELL DISTRIBUTION WIDTH 13.6 % (11.5-14.5); WHITE BLOOD COUNT 7.4 K/uL (4.8-10.8)
[2017-07-01 07:00] LABS: ALB/GLOB RATIO 1.2 (1.0-2.1); ALBUMIN 3.7 g/dL (3.5-5.0); ALT/SGPT 23 U/L (21-72); AST/SGOT 17 U/L (17-59); BLOOD UREA NITROGEN 12 mg/dL (9-20); GFR AFRICAN-AMERICAN > 60; GFR NON-AFRICAN AMERICAN > 60; MAGNESIUM 1.9 mg/dL (1.6-2.3)
[2017-07-01 09:04] VITALS: O2SAT 96
[2017-07-01] MEDS: STRIBILD PO SCH (09:58)
[2017-07-01 11:33] LABS: ABG ALLEN TEST POS; ARTERIAL BLOOD GAS HCO3 26.4 mmol/L (21-28); ARTERIAL BLOOD GAS HEMOGLOBIN 15.8 g/dL (11.7-17.4); ARTERIAL BLOOD GAS O2 SAT 98.7 % (95-98); ARTERIAL BLOOD GAS PCO2 36 mm/Hg (35-45); ARTERIAL BLOOD GAS PH 7.46 (7.35-7.45); ARTERIAL BLOOD GAS PO2 108 mm/Hg (80-100); ARTERIAL BLOOD GAS TCO2 26.7 mmol/L (22-28)
--- NOTE | 2017-07-01 11:59 | CP.PCM.PN ---
Subjective - Date & Time of Evaluation Date of Evaluation: 07/01/17 Time of Evaluation: 07:20 - Subjective Subjective: Medicine progress note ( Dr. Adames's service) Patient was seen and examined at bedside with his parents present. Patient reports that he is doing well and his symptoms have been much better. Patient states the slept well overnight and is eating. Patient denies any acute issues or any other complaints. Patient denies any thoughts of self harm or hurting others. During the second encounter, with attending at bedside, patient admitted he started using GHB for recreational use, and because he lost his job and going through a divorce from her and recent diagnosis of HIV two weeks. Objective - Vital Signs/Intake and Output Vital Signs (last 24 hours): Temp Pulse Resp BP Pulse Ox 97.6 F 98 H 20 139/88 96 07/01/17 08:00 07/01/17 08:00 07/01/17 08:00 07/01/17 08:00 07/01/17 08:00 Intake and Output: 07/01/17 07/01/17 06:59 18:59 Intake Total 120 Balance 120 - Medications Medications: Current Medications Home Med (Patient's Own Medication) 1 tab PO DAILY BERTHA Last Admin: 07/01/17 09:58 Dose: 1 tab - Labs Labs: 07/01/17 06:34 07/01/17 06:34 PT 12.4 SECONDS (9.7-12.2) H 06/29/17 07:52 INR 1.1 06/29/17 07:52 APTT 28 SECONDS (21-34) 06/29/17 07:52 - Constitutional Appears: Well, No Acute Distress - Head Exam Head Exam: ATRAUMATIC, NORMAL INSPECTION - Eye Exam Eye Exam: EOMI, Normal appearance - ENT Exam ENT Exam: Mucous Membranes Moist - Respiratory Exam Respiratory Exam: Clear to Ausculation Bilateral, NORMAL BREATHING PATTERN - Cardiovascular Exam Cardiovascular Exam: REGULAR RHYTHM, +S1, +S2 - GI/Abdominal Exam GI & Abdominal Exam: Soft, Normal Bowel Sounds. absent: Firm, Guarding, Tenderness - Extremities Exam Extremities Exam: Normal Inspection. absent: Calf Tenderness - Back Exam Back Exam: absent: CVA tenderness (L), CVA tenderness (R) - Neurological Exam Neurological Exam: Alert, Awake, Oriented x3 - Psychiatric Exam Psychiatric exam: Depressed, Normal Affect - Skin Skin Exam: Normal Color Assessment and Plan (1) Drug overdose, intentional Assessment & Plan: Psychiatry consult, Dr. Downing---> Help appreciated * Management as per recommendation * Recommendation to transfer to inpatient psychiatry Drug of choice: GHB 1:1 observation Management: * Supportive care Status: Acute (2) History of HIV infection Assessment & Plan: As per patient, patient was diagnosed with HIV 2 weeks ago On Stribild ( Patient's own home medications, verified by pharmacy) Status: Acute (3) Psychiatric disorder Assessment & Plan: Major depression and Generalized anxiety disorder Psychiatry consult, Dr. Downing---> Help appreciated * Management as per recommendation * Recommendation for patient to be admitted to inpatient psychiatry * Plans to restart lexpro Disposition: Patient is medically stable and will be transferred for admission to inpatient psychiatry. Medicine team will sign-off at this time All plans and management discussed with attending, Dr. Adames Status: Acute
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
--- NOTE | 2017-07-01 15:37 | PCM.BM ---
<Dayron Nathan - Last Filed: 07/01/17 15:34> Treatment Plan Problems - Problems identified on initial assessmt Depression Date Initiated: 07/01/17 Time Initiated: 16:00 Date resolved: 07/01/17 Assessment reference: NA Status: Active Substance Abuse Date Initiated: 07/01/17 Time Initiated: 16:00 Date resolved: 07/01/17 Assessment reference: NA Status: Active Treatment assets and liabiliti Patient Assests: adapts well, cooperative, educated, self-reliant, ADL independent, physically healthy, good support system, negotiates basic needs, cognitively intact, good interpersonal skills Patient Liabilities: relationship conflicts (), substance abuse ( Methamphetamines), medical problems (HIV ) - Milieu Protocol Maintain good personal hygiene: daily Encourage regular showers, every shift Remind patient to perform daily oral care, every shift Assist patient to perform ADL's Conduct patient checks and document Observation sheet: Q15 minutes (For safety) Maintain personal safety: every shift Educate patient to report safety concerns to staff, every shift Monitor environment for contraband/sharps Medication safety: Monitor for expected outcome, potential side effects: every shift, Assess barriers to learning: every shift, Assess readiness for medication education: every shift Milieu Narrative: Plan for MDD: Restart lexapro As needed medications All risks, benefits and alternatives of the meds discussed, and the pt agreed and understood. Attend groups and activities Supportive therapy and psychoeducation [place] for abstinence CBT for relapse prevention Encourage MAT Refer to self-help group and CRC Attend groups and activities Individual therapy daily Psychoeducation and support daily Encourage compliance with meds and after care Refer to outpatient program Teach healthy lifestyle methods, i.e. diet, exercise, meditation 34 min Discharge/Continuing Care - Treatment Team Participation Patient/Family/SO Statement: Plan for MDD: Restart lexapro As needed medications All risks, benefits and alternatives of the meds discussed, and the pt agreed and understood. Attend groups and activities Supportive therapy and psychoeducation [place] for abstinence CBT for relapse prevention Encourage MAT Refer to self-help group and CRC Attend groups and activities Individual therapy daily Psychoeducation and support daily Encourage compliance with meds and after care Refer to outpatient program Teach healthy lifestyle methods, i.e. diet, exercise, meditation 34 min <Esmer Downing - Last Filed: 07/01/17 22:42> - Diagnosis (1) Depression, major, severe recurrence Status: Acute Interventions: 07/01/17 22:42 * Assess/adjust medications daily and /or as needed * See patient on an individual basis 7x/week to assess symptoms of depression * Monitor for side effects & effectiveness of medications *
[2017-07-02 06:13] VITALS: BP 122/84; PULSE 97
[2017-07-02] MEDS: STRIBILD PO SCH (09:40)
--- NOTE | 2017-07-02 09:44 | PCM.PYCHDC ---
Mental Status Examination - Mental Status Examination Orientation: Person, Place, Situation, Time Memory: Intact Mood: Neutral Affect: Broad Speech: Appropriate Attention: WNL Concentration: WNL Language: Word Retrieval Association: WNL Fund of Knowledge: WNL Formal Thought Process: No Impairment Suicidal Ideation: No Current Homicidal Ideation?: No Discharge Summary - Discharge Note Reason for Hospitalization: Attempted suicide Psychiatric History (includes Medical, Family, Personal Hx): Anxiety, depression Laboratory Data: Abnormal Lab Results 07/01/17 11:30 Puncture Site Rra pCO2 36 pO2 108 H HCO3 26.4 ABG pH 7.46 H ABG Total CO2 26.7 ABG O2 Saturation 98.7 H ABG Base Excess 2.0 ABG Hemoglobin 15.8 ABG Carboxyhemoglobin 2.0 H POC ABG HHb (Measured) 1.3 ABG Methemoglobin 1.3 Peterson Test Pos A-a O2 Difference -3.0 Respiratory Index 0 Hgb O2 Saturation 95.5 FiO2 21.0 Consultations:: List each consultation separately and include: 1. Reason for request. 2. Findings. 3. Follow-up Summary of Hospital Course include:: 1. Description of specific treatment plan utilized for patients during their course of treatmen. 2. Summarize the time- course for resolution of acute symptoms and/or regressed behaviors. 3. Describe issues identified and worked on during hospitalization. 4. Describe medication utilized. 5. Describe medical problems identified and treated. 6. Reassessment of suicide risk Summary of Hospital Course: 32 y.o. white M with PMHx significant for HIV+, MILKA, depression, h/o ETOH and benzo use, who was BIBALS after he was found altered and vomiting by his at home. Patient states that he intentionally took a lethal dose of GHB (approx. 2oz) as he became abruptly suicidal. Shortly after taking the dose, he felt remorseful and called out to his for help, who quickly came to his aide. noticed the empty bottle next to the patient and realized what had happened prompting him to call EMS. As per patient, both he and his typically take combo GHB/methamphetamine (approx 1 tsp) recreationally 1-2x/ month. However, yesterday patient felt extremely sad and wanted to end his life , so he decided to take the entire bottle of GHB. Denies any previous attempts at suicide or overdose. During the discussion, patient explains that he has been feeling completely overwhelmed with all the current stressors in his life. 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 Also over the last few months, him and his are going through a divorce, and currently dealing with lease negotiations and the move out. Additionally, both him and his were diagnosed with HIV 2 years ago, and he revealed this information to his family quite recently. As per patient, he currently lives in [place] with his , although they are making arrangements to separate. He reports that he grew up in [place] in a traditional orthodox household, but his family was okay and supportive of his coming out. At this time, patient is in NAD. Denies any cocaine or opioid use. Denies any prior inpatient psych treatment. No other complaints are noted at this time. Detox Hx: Denies Rehab Hx: Denies Medical Hx: HIV + (received HAART, currently on Stribold, last CD4+ count 600s; followed by a Dr. Dinorah Norton in [facility]), Anxiety, depression, HTN ( uncontrolled) Medications: Stribild currently, Klonopin in the past, Lexapro in the past ( stopped 3 weeks ago) Psych Hx: MILKA + depression, No prior attempts at suicide Fam Hx: Denies The pt was admitted and started on treatment with psychotherapy, support, psychoeducation and medications. [place] and CBT used. The pt attended groups and activities, as well as milieu therapy. All the risks and benefits of medications are discussed and the patient understood and agreed. The pt improved with the treatments provided. Lengthy discussion with patient took place. Upon discharge, patient expressed his clear understanding of the situation and the current circumstances. He was offered to stay inpatient voluntarily as long as he needs. Patient stated that he has a strong support group with his family and close friends and would prefer to return home and sort things out with the help of this support team. He would also like to establish long-term outpatient care in the near future. Patient instructed to follow-up at the [facility] as an outpatient. Rx of lexapro and trazodone were provided - Diagnosis (1) Depression, major, severe recurrence Status: Acute - Final Diagnosis (DSM 5) Condition upon Discharge: GOOD Disposition: HOME/ ROUTINE Follow-up Treatment Plan: Continue below medications after discharge. Follow after care plan as discussed. Use relapse prevention skills Return to ER or call 911 if suicidal, homicidal or symptoms relapse. Stay away from stress, alcohol and drugs. See primary doctor regularly and get labs. Prescriptions/Medication Reconciliation: Escitalopram [Lexapro] 10 mg PO DAILY #30 tab traZODone [Desyrel] 50 mg PO HS PRN #30 tab PRN Reason: Insomnia - Smoking Cessation Smoking Cessation Medication prescribed: No
--- NOTE | 2017-07-02 13:56 | CARD ---
APPROVED REPORT EKG Measurement Heart [id number] <Conclusion> Normal sinus rhythm with sinus arrhythmia Normal ECG
== END 2017-07-02 10:25 | disposition home or self-care (01) | DRG 917 ==
LOC: C.ER 07:23 → C.9E 09:19 → C.9I 09:35 → C.3T 06-30 19:24 → C.5E 07-01 14:54
PROVIDERS: ADMIT Psychiatry & Neurology Psychiatry; ATTEND Psychiatry & Neurology Psychiatry
PROC: 5A1935Z Respiratory Ventilation, Less than 24 Consecutive Hours (ICD-10-PCS; principal; 2017-06-29)
DX: T43.622A Poisoning by amphetamines, intentional self-harm, initial encounter (principal); J96.00 Acute respiratory failure, unspecified whether with hypoxia or hypercapnia; F33.2 Major depressive disorder, recurrent severe without psychotic features; Z21 Asymptomatic human immunodeficiency virus [HIV] infection status; F15.10 Other stimulant abuse, uncomplicated; F10.10 Alcohol abuse, uncomplicated; F41.1 Generalized anxiety disorder; I10 Essential (primary) hypertension